=== PATIENT | female | born 1985 | race African-American/Black ===

== ENCOUNTER 2020-05-10 11:09 | Emergency (ER) | payer OTHER ==
[~2020-05-10] VITALS: Ht 157.5 cm; Wt 97.5 kg
[2020-05-10 12:12] LABS: ABSOLUTE EOSINOPHILS 0.2 thou/uL (0.0-0.7); ABSOLUTE LYMPHOCYTES 1.7 thou/uL (0.8-5.3); ABSOLUTE MONOCYTES 0.6 thou/uL (0.0-1.2); ABSOLUTE NEUTROPHILS 7.3 thou/uL (1.6-8.1); BASOPHILS 0.5 %; HEMATOCRIT 37.5 % (37.0-47.0); LYMPHOCYTES 17.5 %; MCH 25.5 pg (26.0-34.0); MCHC 32.1 g/dL (28.0-37.0); MCV 79.4 fL (80.0-100.0); MONOCYTES 6.4 %; MPV 8.8 fl. (7.2-11.1); NUCLEATED RBCS 0 /100WBC; PLATELET COUNT* 191 thou/uL (150-400); POLYS 73.6 %; RBC 4.73 mil/uL (4.20-5.00); WBC 9.9 thou/uL (4.0-11.0)
[2020-05-10 12:13] LABS: URINE BILIRUBIN NEGATIVE (Negative); URINE BLOOD TRACE (Negative); URINE CLARITY CLEAR; URINE COLOR YELLOW; URINE GLUCOSE-RANDOM NEGATIVE (Negative); URINE KETONES NEGATIVE (Negative); URINE LEUKOCYTES-REFLEX NEGATIVE (Negative); URINE PROTEIN NEGATIVE (Negative); URINE SPECIFIC GRAVITY >= 1.030 (1.005-1.030); URINE UROBILINOGEN 0.2 E.U./dl (0.2-1.0)
[2020-05-10 12:14] LABS: URINE NITRITE-REFLEX POSITIVE (Negative)
[2020-05-10 12:20] LABS: SQUAMOUS 0-3 Few /LPF (0-3)
[2020-05-10 12:21] LABS: CALCIUM 8.5 mg/dL (8.5-10.1); CREATININE 0.8 mg/dL (0.6-1.3); POTASSIUM 3.5 mmol/L (3.5-5.1)
[2020-05-10 12:21] LABS: BACTERIA-REFLEX >30 Many /HPF (None Seen); CASTS None Seen /LPF (None Seen); CRYSTALS None Seen /LPF (None Seen); MUCUS None Seen strn/LPF (None Seen); URINE RBC 3-10 Few /HPF (0-2); URINE WBC-REFLEX 6-15 Few /HPF (0-5)
[2020-05-10 12:26] LABS: ALBUMIN 3.7 g/dL (3.4-5.0); TOTAL BILIRUBIN 0.6 mg/dL (<0.1-1.0)
[2020-05-10] MEDS ORDERED: VISTARIL 25 MG25 M1 PO (12:26)
[2020-05-10] MEDS ORDERED: BACTRIM DS TAB1 EACH PO (12:26)
[2020-05-10 13:29] VITALS: BP 134/66
== END 2020-05-10 13:29 | disposition home or self-care (01) ==
LOC: M.ERS 11:09
PROVIDERS: Physician Assistant
DX: N39.0 Urinary tract infection, site not specified (principal); F41.9 Anxiety disorder, unspecified